=== PATIENT | female | born 1960 | race Caucasian/White ===

== ENCOUNTER 2018-09-20 14:31 | Outpatient (CLI) | payer BC | END 2018-09-20 23:59 | disposition home or self-care (01) | LOC: CFH 14:31 | PROVIDERS: ATTEND Obstetrics & Gynecology | DX: Z02.9 Encounter for administrative examinations, unspecified (principal) ==

== ENCOUNTER → 2019-12-29 | Outpatient (CLI) | payer BC | END | disposition home or self-care (01) | LOC: CFH 12:44 | PROVIDERS: ATTEND Obstetrics & Gynecology | DX: Z85.3 Personal history of malignant neoplasm of breast (principal) | CPT/HCPCS: 76642; 77066; G0279 ==